=== PATIENT | female | born 1965 | race Caucasian/White ===

== ENCOUNTER 2017-01-04 09:25 | Day surgery (SDC) | payer OTHER ==
[2017-01-03 19:03] LABS: HEMATOCRIT 23.9 % (37.0-47.0); HEMOGLOBIN 7.6 g/dL (12.0-16.0); MANUAL DIFF NEEDED? YES; MCH 30.4 PG (27-31); MCHC 31.8 g/dL (33-37); MCV 95.6 FL (81-99); MPV 11.3 FL (7.4-10.4); PLT 54 X1000 (130-400)
[2017-01-03 20:32] LABS: BANDS 9 % (0-1); EOS 2 % (1-10); LYMPHS 37 % (21-51); MONO 4 % (1-9); NRBC 22 % (0-0)
[2017-01-04] MEDS ORDERED: NS 250 ML ONE (09:37)
[2017-01-04] MEDS ORDERED: TYLENOL ONE (09:50)
[2017-01-04] MEDS ORDERED: BENADRYL ONE (09:50)
[2017-01-04] MEDS ORDERED: HEPARIN ONE (13:37)
[2017-01-04 13:50] VITALS: BP 107/76
== END 2017-01-04 13:37 | disposition home or self-care (01) ==
LOC: OPS 09:25
PROVIDERS: ATTEND Internal Medicine Hematology & Oncology
DX: C50.911 Malignant neoplasm of unspecified site of right female breast (principal); D63.0 Anemia in neoplastic disease; Z17.0 Estrogen receptor positive status [ER+]; I89.0 Lymphedema, not elsewhere classified; C79.51 Secondary malignant neoplasm of bone; E87.6 Hypokalemia; D50.9 Iron deficiency anemia, unspecified; D69.6 Thrombocytopenia, unspecified; D70.9 Neutropenia, unspecified; R16.1 Splenomegaly, not elsewhere classified; Z15.01 Genetic susceptibility to malignant neoplasm of breast; Z79.899 Other long term (current) drug therapy
CPT/HCPCS: 36415; 36430; 85025; 86850; 86900; 86901; 86920; J7050; P9016

== ENCOUNTER 2017-02-16 11:33 | Inpatient (IN) ==
[2017-02-16] MEDS ORDERED: ZOFRAN IV ONE ×2 (11:58→17:02)
[2017-02-16] MEDS ORDERED: NS 1,000 ML IV ONE (11:58)
[2017-02-16 13:25] LABS: URINE CULTURE NEEDED? NO; URINE MICRO REVIEW NEEDED? NO; URINE SOURCE CLEAN CATCH
[2017-02-16 13:38] LABS: BASO% 2.9 % (0.0-0.8); EOS% 1.9 % (0.0-10.0); HEMATOCRIT 28.4 % (37.0-47.0); HEMOGLOBIN 8.6 g/dL (12.0-16.0); IMM GRAN# 0.26 X1000 (0.0-0.04); IMM GRAN% 2.4 % (0.0-0.5); LYMPH# 6.42 X1000 (1.2-3.4); LYMPH% 59.4 % (20.5-51.1); MANUAL DIFF NEEDED? NO; MCH 31.2 PG (27-31); MCHC 30.3 g/dL (33-37); MCV 102.9 FL (81-99); MONO# 1.27 X1000 (0.11-0.59); MONO% 11.7 % (1.7-9.3); MPV 11.8 FL (7.4-10.4); NEUT% 21.7 % (42.2-75.2); PLT 50 X1000 (130-400); RBC 2.76 XMIL (4.2-5.4)
[2017-02-16 13:46] LABS: BILIRUBIN URINE LARGE (NEGATIVE); BLOOD URINE NEGATIVE (NEGATIVE); COLOR ORANGE; GLUCOSE URINE NEGATIVE (NEGATIVE); LEUKOCYTES URINE NEGATIVE (NEGATIVE); NITRITE URINE NEGATIVE (NEGATIVE); PH URINE 5.5; PROTEIN URINE TRACE mg/dL (NEGATIVE); SP GRAVITY URINE 1.024; TURBIDITY URINE HAZY (CLEAR); UR EPITHELIAL CELLS <10 /HPF (<10); URINE BACTERIA NEGATIVE /HPF; URINE WBC <10 /HPF (<10); UROBILINOGEN URINE 6 mg/dL (NORMAL)
[2017-02-16 13:47] LABS: AGAP 18; ALBUMIN 2.5 g/dL (3.5-5.0); ALKALINE PHOSPHATASE 918 U/L (32-104); AMYLASE 13 U/L (20-200); BUN 15 mg/dL (8-22); CALCIUM 8.1 mg/dL (8.8-10.2); CHLORIDE 98 mmol/L (98-107); COSMO 273; GOT 409 U/L (10-30); GPT 219 U/L (10-36); LIPASE 25 U/L (13-60); POTASSIUM 4.3 mmol/L (3.5-5.1); SODIUM 135 mmol/L (136-145); TCO2 19 mmol/L (25-35); TOTAL BILIRUBIN 9.34 mg/dL (0.20-1.00); TOTAL PROTEIN 5.3 g/dL (6.3-8.3)
[2017-02-16 14:16] LABS: INR 1.29; PROTIME 13.8 Seconds (9.2-11.7)
[2017-02-16 14:31] LABS: PTT 48.7 Seconds (22.0-36.0)
--- NOTE | 2017-02-16 15:58 | Diag Imaging Result Document ---
PROCEDURE NAME: CT ABD/PELVIS W/ IV CONT ONLY - 02/16/2017 CT ABDOMEN AND PELVIS WITH INTRAVENOUS CONTRAST. TECHNIQUE: Dose reduction protocol. COMPARISON: Compared to 03/13/2014. FINDINGS: Interval development of a moderate amount of abdominal and pelvic ascites. Interval development of marked splenomegaly with the spleen measuring 17.5 cm. Multiple small hypodense nodular areas throughout the spleen. The liver is mildly nodular. The gallbladder is contracted. Normal pancreas and adrenal glands. Interval development of moderate proximal right-sided hydronephrosis, but no stones. Normal aorta. No bowel obstruction. Normal appendix. No abscess. The urinary bladder is mild to moderately distended. The uterus has been removed or is small. Interval development of diffuse sclerotic bony metastases. There is a right-sided breast implant. IMPRESSION: 1. Interval development of cirrhosis with nodular liver, splenomegaly, and ascites. 2. There is now diffuse sclerotic bony metastases. 3. Development of proximal right hydronephrosis, but no calcified stone. A preliminary report was given at 3:17 p.m.
[2017-02-16 17:05] LABS: HEMATOCRIT 25.1 % (37.0-47.0); HEMOGLOBIN 7.6 g/dL (12.0-16.0)
--- NOTE | 2017-02-16 17:50 | PROVIDER DOCUMENTATION ---
This chart was entered by Moon Becerra Scribe, acting as scribe for Dex Schroeder MD. HPI-Abdominal Pain/GI Problem - General Chief Complaint: Abdominal Pain Stated Complaint: vomiting,nausea,abd pain Time Seen by Provider: 02/16/17 11:50 Source: patient Allergies/Adverse Reactions: Patient Allergies Allergy/AdvReac Type Severity Reaction Status Date / Time codeine [Codeine] AdvReac Severe ITCHING Verified 02/16/17 15:22 Penicillins AdvReac Severe NAUSEA/VOMI Verified 02/16/17 15:22 TING hydrocodone [Hydrocodone] AdvReac Intermediate ITCHING Verified 02/16/17 15:22 Home Medications: Home Medication List Medication Instructions Recorded Confirmed Last Taken Type Venlafaxine [Effexor] 75 mg PO HS 09/10/12 02/16/17 02/15/17 21:00 History Tapentadol [Nucynta] 50 mg PO Q6H PRN PRN 05/22/16 02/16/17 02/02/17 21:00 History Letrozole [Femara] 2.5 mg PO DAILY 01/04/17 02/16/17 02/15/17 21:00 History Cetirizine HCl [Zyrtec] 10 mg PO DAILY 02/16/17 02/16/17 Unknown History Fexofenadine HCl [Desire Allergy] 60 mg PO DAILY 02/16/17 02/16/17 Unknown History Omeprazole 20 mg PO QHS 02/16/17 02/16/17 Unknown History Ondansetron HCl [Ondansetron HCl] 8 mg PO Q8H PRN PRN 02/16/17 02/16/17 Unknown History Temazepam [Temazepam] 15 mg PO PRN PRN 02/16/17 02/16/17 Unknown History - History of Present Illness-ABD Nature of Presenting Problems: Pt is 52 y/o F presents to the ED with abdominal pain. 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 Pt's daughter states Pt has gained 6 lbs in 2 weeks. Pt's daughter states Pt increased weakness, loss of appetite, and worsening jaundice. Pt's daughter states hx of cancer. Pt's daughter states recent treatment of chemo for breast cancer that has spread to the bones. Abdominal Pain Onset Location: reports: generalized abdomen Pain Radiation: reports: no radiation Quality of Pain: reports: aching, fullness, tightness Severity in ED: reports: moderate Onset/Duration: reports: other (2 weeks) Timing: reports: still present, getting worse Activities at Onset: reports: light activity Exposure to sick contacts?: No Modifying Factors: improves with: nothing Associated Symptoms: reports: loss of appetite, nausea, swelling/mass in abdomen (swelling), vomiting, weakness, trouble walking. denies: anxiety, arm pain, back/neck pain, chest pain, constipation, cough, diaphoresis, diarrhea, dizziness, EENT symptoms, fatigue, fever/chills, genitourinary problems, headaches, heartburn, joint pain, malaise, muscle aches, sinus congestion/ drainage, rash, seizure, shortness of breath, sensory/motor loss, pain with inspiration, syncope Last BM: unsure Dark Stools Present?: reports: none noticed Rectal Bleeding: reports: none Rectal Pain: reports: none # of Vomiting Episodes: 4 Emesis Description: reports: clear Bruising or Bleeding Gums?: No Similar Symptoms Previously?: Yes Recently seen or treated by another doctor?: Yes Review of Systems - Adult - REVIEW OF SYSTEMS - ADULT Constitutional: reports: no symptoms reported Eyes: reports: no symptoms reported Ears, Nose, Mouth & Throat: reports: no symptoms reported Cardiovascular: reports: irregular heart rate (tachy). denies: chest pain, heart murmur Respiratory: reports: no symptoms reported Gastrointestinal: reports: abdominal pain, diarrhea, nausea, poor appetite, vomiting Genitourinary: reports: no symptoms reported Musculoskeletal: reports: muscle weakness. denies: bone pain, joint pain, neck pain Integumentary: reports: no symptoms reported Neurological: reports: no symptoms reported Psychiatric: reports: no symptoms reported Endocrine: reports: change in skin pigment. denies: excessive sweating, goiter , polyuria Hematologic/Lymphatic: reports: no symptoms reported Allergic/Immunologic: reports: no symptoms reported All Other Systems: Reviewed and Negative Past History - Adult - PAST MEDICAL HISTORY-ADULT Review of Records: reports: Nursing Assessment Review, Medications Reviewed, Social history reviewed & non-contributory. Major Childhood Illnesses: reports: denies history Cardiovascular: reports: denies history Respiratory: reports: denies history Gastrointestinal: reports: GERD Obstetrical/Gynecological: reports: other (cancer) Genitourinary: reports: denies history Musculoskeletal: reports: cancer Neurological: reports: denies history Endocrine/Immune: reports: cancer Other Conditions: reports: denies history - PRIOR SURGERIES/PROCEDURES Surgical/Procedure History: reports: hysterectomy, , breast - IMMUNIZATION STATUS Childhood Immunizations: See Nurse Assessment Flu Vaccine: See Nurse Assessment - FAMILY HISTORY Family History: reviewed, not pertinent - SOCIAL HISTORY Smoking: denies Substance Use: denies Living Situation: family Physical Exam-General - PHYSICAL EXAM-ADULT Initial Vital Signs Reviewed: Yes - CONSTITUTIONAL General Appearance: alert, mild distress, slow to respond. negative: appears well (ill in appearance) - EYES Eyes: PERRL/EOMI, other (jaundice to sclera) - HEAD, EARS, NOSE, MOUTH & THROAT HENMT: normocephalic/atraumatic, moist mucous membranes, normal ENT inspection, TMs normal, pharynx normal - NECK Neck: non-tender, full range of motion, supple, normal inspection - RESPIRATORY Respiratory: chest non-tender, lungs clear, normal breath sounds, no pleuratic chest pain, no respiratory distress, no accessory muscle use - CARDIOVASCULAR Cardiovascular: normal peripheral pulses, no edema, no gallop, no JVD, no murmur , tachycardia - GASTROINTESTINAL (ABDOMEN) Abdominal Exam: normal bowel sounds, soft, no organomegaly, no pulsatile mass, distended, tenderness (generalized) - LYMPHATIC Lymphatic: no adenopathy - MUSCULOSKELETAL Back Exam: normal inspection, no CVA tenderness, no vertebral tenderness Extremity: normal range of motion, non-tender, normal gait, normal inspection, no pedal edema, no calf tenderness - SKIN Integumentary: normal turgor, warm/dry, jaundice - NEUROLOGIC Neurologic: grossly normal - PSYCHIATRIC Psych/Mental Status: normal mood/affect, oriented x 3 Progress - PLAN OF CARE/RESULTS Progress/Plan/Lab Results: Vital Signs - 8 hr 02/16/17 11:40 Temperature 97.4 F L Pulse Rate 151 H Respiratory Rate 18 Blood Pressure 111/87 O2 Sat by Pulse Oximetry 100 Result Diagrams: 02/16/17 16:48 02/16/17 12:25 - EKG 1 Time of EKG reading by physician:: 11:48 EKG Read and Signed by:: Dex Schroeder EKG Interpretation (*Must complete 3 of following elements*): Abnormal Rate: 136 Rhythm: sinus tachycardia Comments: lateral infarct, age undetermined - CT/MRI 1 CT Study: Abdomen, Pelvis Impression: Abnormal (development of cirrhosis since the prior exam; splenomegaly, nodular liver and moderate ascites. development of moderate right hydroephrosis, but no stones. development of diffuse bone mets.) - CONSULTS/PCP/HOSPITALIST Notification #1 *Consult/PCP/Hospitalist*: Dr. Gooden Time Discussed: 17:45 Reason/Comments: Dr. Schroeder consulted with Dr. Gooden about admit of PT Consult Disposition: Admit Departure - Departure Time of Disposition Decision: 17:44 DIAGNOSIS: Anemia Post-operative complication Qualifiers: Surgical complication system/body Area: [id number] Encounter type: initial encounter Postoperative shock type: other Disposition: HOME 01 Certified Medical Emergency: Emergent Condition: Stable Additional Freetext Instructions: ED Follow Up Instructions: You have been treated by a care provider in the Emergency Department. These instructions are being provided to you so you can have an understanding of how to care for yourself upon discharge. Upon discharge from the Emergency Department, you are responsible for making arrangements for follow-up care by a physician of your choice. Take all prescribed medications as directed. Return to the Emergency Department immediately for any new or worsening symptoms. You may call the Physician Referral phone number at [phone] to obtain a list of Physicians who are taking new patients. Referrals and Follow-Ups: None,PCP [Primary Care Provider] - - Critical Care Note This patient required my direct personal management.: No This chart was documented by the indicated scribe, (Moon Becerra Scribe) and accurately reflects the services I performed and decisions made by me, Dex Schroeder MD, as attested by the provider's signature.
--- NOTE | 2017-02-16 19:32 | HISTORY AND PHYSICAL ---
PRIMARY CARE PROVIDER: Dr. Ferris. CHIEF COMPLAINT: Nausea, vomiting with abdominal pain. HISTORY OF PRESENT ILLNESS: Ms. Alma Zaldivar is a 52-year-old, female with a history of right breast cancer that she was diagnosed with 5 years ago along with mets to the bones. She started chemo at that time. Then again in May 2016 she was diagnosed with a spread into the bone marrow after she had a bone marrow biopsy. She resumed chemo for that and finished December 27, 2016. Today she went in for liver biopsy, had gone home, tried to eat a sandwich and it caused her a great deal of nausea and she had also been having some abdominal pain with this. She states that she is vomiting but denies that there is any blood in the stool, emesis or in her urine. Upon workup it was revealed that she had elevated bilirubin, AST and ALT normal amylase and lipase and normal kidney function. An abdominal pelvic CT was performed which showed right hydronephrosis, cirrhosis, nodular liver, ascites, splenomegaly and diffuse sclerotic bony mets. Will admit her for significant nausea, vomiting, significantly elevated liver enzymes and consult Dr. Ferris and Dr. Dey. She also has a low hemoglobin and hematocrit and a low platelet count. She states that she has had 6-7 blood transfusions with her last 1 being November of 2016. Will continue with IV fluid hydration and admit to the medical floor. PAST MEDICAL HISTORY: 1. Right breast cancer with mets to the bones 5 years ago. Received chemo at that time. 2. 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 Received chemo for that which she finished on 12/27/2016. 3. Anemia secondary to bone marrow mets. SURGICAL HISTORY: Right mastectomy with reconstruction 5 years ago, 3 sections, a hysterectomy, bone marrow biopsy and port placement. SOCIAL HISTORY: Denies tobacco, alcohol or illicit drug use. She has 4 adult children ages 25- 35. FAMILY HISTORY: Brother had diabetes. Father had heart disease and also had prostate and bone cancer. REVIEW OF SYSTEMS: Fourteen point review of systems were complete and all are negative, except for those mentioned in above HPI. ALLERGIES: Codeine, penicillin and hydrocodone. HOME MEDICATIONS: Zyrtec 10 mg p.o. daily. Desire 60 mg p.o. daily. Femara 2.5 mg p.o. daily. Omeprazole 20 mg p.o. nightly. Zofran 8 mg p.o. every 8 hours as needed. Tapentadol 50 mg p.o. every 6 hours p.r.n. for pain. Temazepam 50 mg p.o. p.r.n. Effexor 75 mg p.o. nightly. LABORATORY DATA: White blood cells 10,000, hemoglobin 7.6, hematocrit 25.1, platelet count 59,000. INR 1.29. PTT is 48.7. Sodium 135, potassium 4.3, BUN 15, creatinine 0.8, glucose 143. Bilirubin 9.34. AST 409, ALT 219, alkaline phos 918. Albumin is 2.5. Amylase 13, lipase 25. Urinalysis trace protein, large bilirubin, 10-20 red blood cells. IMAGING: Abdominal pelvic CT, interval development of cirrhosis with nodular liver splenomegaly and ascites, diffuse sclerotic bony metastasis, proximal right hydronephrosis but no calcified stone. PHYSICAL EXAMINATION: VITAL SIGNS: Temperature is 97.5 degrees, heart rate 125, respiratory rate 16, blood pressure 107/95, saturation 96% on room air. 5 feet 3 inches tall, 165 pounds. BMI 29.2. GENERAL: Ms. Alma Zaldivar is a 52-year-old, ill-appearing, female. She is in no acute distress. She is able answer all questions appropriately. HEENT: Atraumatic, normocephalic. Pupils equal, round, reactive to light. Mild scleral icterus. Mucous membranes are dry. NECK: No JVD or carotid bruits noted. CARDIOVASCULAR: S1, S2. Regular rate and rhythm. Tachycardic rate and rhythm. No rubs, gallops, or murmurs. PULMONARY: Clear to auscultation. Bilateral breath sounds. No accessory muscle use or work of breathing noted. GI: Distended, soft. Hypoactive bowel sounds. Tender in all 4 quadrants. Positive wave. No bleeding from the site of biopsy. EXTREMITIES: No edema noted. +2 dorsalis and radial pulses. NEUROLOGIC: Alert and oriented x4. Moves all extremities equally. SKIN: Warm, dry, intact. Icterus. ASSESSMENT AND PLAN: 1. Intractable nausea, vomiting, with abdominal pain. We will do Zofran and Phenergan. The abdominal pelvic CT showed that she has cirrhosis with ascites and a nodular liver. She is now status post liver biopsy with a history of breast cancer with mets to the bone and bone marrow. Patient states that she is followed by Dr. Ferris. We will reconsult him. 2. Breast cancer with mets to the bone and bone marrow, currently ruling out mets to the liver. Will be followed by Dr. eFrris. 3. Hyperbilirubinemia, transaminitis after liver biopsy. We will consult Gastroenterology for further workup. Amylase and lipase are normal. 4. 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 She has received several blood transfusions, she said anywhere from 6-7 with her last being November of 2016. Could consider blood transfusion this admit. 5. Thrombocytopenia. Platelet count is 50,000. This is likely secondary to liver dysfunction. We will consult Dr. Dey. She states that she has of an appointment with him in 1 week. 6. Deep venous thrombosis prophylaxis will be SCDs. 7. Gastrointestinal prophylaxis, Protonix IV q.12 hours. Dictated by JONNY Velarde for Kwame Gooden MD cc: JONNY Velarde MD Sammy Becdach, MD
[2017-02-16 19:43] LABS: TOTAL IRON 179 ug/dL (49-151); UNBOUND IRON < 1 ug/dL (112-346)
[2017-02-16 19:57] LABS: FERRITIN 7127 ng/mL (13-150)
[2017-02-16] MEDS ORDERED: SODIUM CHLORIDE 0.9% 10 ML ONE (21:24)
[2017-02-16] MEDS: SODIUM CHLORIDE 0.9% INJ PRN (21:27)
[2017-02-16] MEDS: SODIUM CHLORIDE 0.9% INJ SCH (21:28)
[2017-02-16] MEDS: PROTONIX IV SCH (21:28)
[2017-02-16] MEDS: NS 1,000 ML IV SCH (21:28)
[2017-02-16] MEDS: ZOFRAN IV PRN (21:34)
[2017-02-16] MEDS: EFFEXOR PO SCH (21:35)
[2017-02-16] MEDS: RESTORIL PO PRN (21:35)
[2017-02-16] MEDS ORDERED: PATIENT'S OWN MED PO PRN (21:45)
[2017-02-16 23:43] LABS: URINE CULTURE NEEDED? NO; URINE MICRO REVIEW NEEDED? NO; URINE SOURCE CATH
[2017-02-16 23:51] LABS: BILIRUBIN URINE MODERATE (NEGATIVE); BLOOD URINE NEGATIVE (NEGATIVE); COLOR YELLOW; GLUCOSE URINE NEGATIVE (NEGATIVE); LEUKOCYTES URINE NEGATIVE (NEGATIVE); NITRITE URINE NEGATIVE (NEGATIVE); PH URINE 5.5; PROTEIN URINE 30 mg/dL (NEGATIVE); TURBIDITY URINE CLEAR (CLEAR); UROBILINOGEN URINE 4 mg/dL (NORMAL)
[2017-02-16 23:52] LABS: UR EPITHELIAL CELLS <10 /HPF (<10); URINE BACTERIA NEGATIVE /HPF; URINE RBC <10 /HPF (<10); URINE WBC <10 /HPF (<10)
[2017-02-16 23:55] LABS: SP GRAVITY URINE > 1.030
[2017-02-17] MEDS: SODIUM CHLORIDE 0.9% INJ PRN ×2 (01:46→23:11)
[2017-02-17] MEDS: PHENERGAN IV PRN ×2 (01:46→23:11)
[2017-02-17 06:44] LABS: BASO% 2.3 % (0.0-0.8); EOS# 0.08 X1000 (0.0-0.7); EOS% 1.4 % (0.0-10.0); HEMATOCRIT 23.2 % (37.0-47.0); IMM GRAN# 0.16 X1000 (0.0-0.04); IMM GRAN% 2.8 % (0.0-0.5); LYMPH# 2.73 X1000 (1.2-3.4); LYMPH% 47.6 % (20.5-51.1); MANUAL DIFF NEEDED? YES; MCH 30.8 PG (27-31); MCHC 30.2 g/dL (33-37); MCV 102.2 FL (81-99); MONO# 0.76 X1000 (0.11-0.59); MONO% 13.3 % (1.7-9.3); NEUT% 32.6 % (42.2-75.2); PLT 40 X1000 (130-400); RBC 2.27 XMIL (4.2-5.4)
[2017-02-17 06:49] LABS: INR 1.6; PROTIME 17.3 Seconds (9.2-11.7)
[2017-02-17] MEDS: NS 1,000 ML IV SCH ×3 (06:52→23:12)
[2017-02-17 07:14] LABS: BANDS 4 % (0-1); EOS 2 % (1-10); LYMPHS 48 % (21-51); MONO 16 % (1-9); NRBC 10 % (0-0); POLYCHROM OCCASIONAL
[2017-02-17 07:26] LABS: AGAP 16; ALBUMIN 2.1 g/dL (3.5-5.0); ALKALINE PHOSPHATASE 800 U/L (32-104); BUN 18 mg/dL (8-22); CALCIUM 7.2 mg/dL (8.8-10.2); CHLORIDE 100 mmol/L (98-107); COSMO 272; GOT 765 U/L (10-30); GPT 280 U/L (10-36); POTASSIUM 4.7 mmol/L (3.5-5.1); SODIUM 135 mmol/L (136-145); TCO2 19 mmol/L (25-35); TOTAL BILIRUBIN 8.34 mg/dL (0.20-1.00); TOTAL PROTEIN 5.2 g/dL (6.3-8.3)
[2017-02-17] MEDS: PROTONIX IV SCH ×2 (08:52→20:29)
[2017-02-17] MEDS: ZOFRAN IV PRN ×3 (08:52→19:31)
[2017-02-17] MEDS: FEMARA PO SCH (08:52)
[2017-02-17] MEDS: SODIUM CHLORIDE 0.9% INJ SCH ×2 (08:52→20:30)
--- NOTE | 2017-02-17 11:08 | PROGRESS NOTE ---
DATE: 02/17/2017 Today Ms. Zaldivar referred to be doing a little okay. No more nausea but she is extremely weak. OBJECTIVE: Vital signs: Blood pressure is 118/83, pulse of 118, respirations 90, temperature 98.3 degrees. General: Ms. Zaldivar is a 52-year-old female. She is in bed. She looks slightly wasted. Mucosa is slightly pale and 3+ icteric. Neck: Supple. Chest : Good air entry bilateral. No crepitations. No rhonchi. Cardiovascular: Regular rate and rhythm. Abdomen: Soft, distended. There is fluid shift and dullness and there is also tenderness over the left upper quadrant. No guarding. No rebound. Lower Extremities: No pedal edema. PRODUCTION EXPEDITER: Patient is alert, oriented x4. There is no focal neurological deficit. LABORATORY DATA: WBC is 5.73, hemoglobin is 7.0, platelet count of 40,000. There is 10% of nucleated RBC on the peripheral smear and the MCV is 102. Sodium is 135, potassium is 4.7, chloride is 100, bicarb is 19. Renal function is fine. Total bilirubin is 8.34, AST is 765, ALT is 280. Alkaline phosphatase is 800. TSH is 1.14. DIAGNOSTIC STUDIES: A CT scan of the abdomen and pelvis done yesterday shows interval development of cirrhosis with nodular liver, diffuse sclerotic bony metastases and development of proximal right hydronephrosis. ASSESSMENT: 1. Transaminitis likely due to liver metastasis from the disease. There is significant splenomegaly with hypodensity lesions in the spleen likely due to metastasis. 2. Cirrhosis, etiology is unclear. Patient had a biopsy of the liver yesterday. Will be pending on the official report. 3. Ascites. Not quite sure the reason. I think it is probably related to the cirrhosis with portal hypertension. We will however let the patient go to Radiology for diagnostic paracentesis sunday. 4. History of history of breast cancer with bone metastasis. Noted. 5. Proximal right hydronephrosis. We will start the patient on antibiotics and consult Urology. 6. Macrocytic anemia. Folate is low. Patient also has nucleated RBC 10%. This is all consistent with possible myelodysplastic features which could be just from the bone invasion of the cancer. We are going to transfuse her 2 PRBC today and consult Dr. Ferris. cc: Kwame Gooden MD MTDD
[2017-02-17 12:50] LABS: RETIC% 5.26 % (0.8-2.1); RETIC-HE 38.7 PG (28.2-36.6)
[2017-02-17] MEDS ORDERED: NS 500 ML ONE (13:39)
--- NOTE | 2017-02-17 16:24 | CONSULTATION ---
DATE OF CONSULTATION: 02/17/2017 CONSULTING PHYSICIAN: Kwame Gooden MD. REASON FOR CONSULTATION: Right hydronephrosis. HISTORY OF PRESENT ILLNESS: A 52-year-old female with metastatic breast cancer who presented with nausea and abdominal pain. She was admitted and in the process a CT of abdomen and pelvis was done which revealed right hydronephrosis of new onset. She denies severe right flank pain, gross hematuria, fevers or chills. She denies previous urologic surgeries. She currently reports being comfortable as long as she is on Zofran and has a Fleming catheter in her bladder draining straw- colored urine. PAST MEDICAL HISTORY: Metastatic breast cancer, chronic anemia, allergic rhinitis, nausea, GERD, anxiety and depression. PAST SURGICAL HISTORY: Mastectomy, , hysterectomy, chemotherapy port placement, bone marrow biopsy. ALLERGIES: Codeine, penicillin, hydrocodone. HOME MEDICATIONS: Zyrtec, Desire, Femara, omeprazole, Zofran, Temazepam and Effexor. SOCIAL HISTORY: She denies tobacco, alcohol or drug use. FAMILY HISTORY: Positive for coronary artery disease and diabetes. REVIEW OF SYSTEMS: Reviewed and 12 systems negative with the exception of the HPI. PHYSICAL EXAMINATION: Vital Signs: T 98.3 degrees, P 121, BP 119/84. General : No acute distress. Pleasant female. HEENT: Normocephalic, atraumatic. Cardiovascular : Tachycardic, regular rhythm. Pulmonary: Bilateral breath sounds. Abdomen: Nontender, nondistended, but is protuberant likely due to cirrhosis and ascites. Genitourinary: Bladder is nontender to palpation, Fleming catheter in place draining straw-colored urine. Lymphatic: No groin lymphadenopathy. Dermatologic: No obvious skin lesions. Neurologic: Alert and oriented x3. Psychiatric: Appropriate mood and affect. PERTINENT LABS: White cell count of 5000, hematocrit of 23, platelets of 40,000 , creatinine of 0.7. PERTINENT IMAGES: CT of abdomen and pelvis on 02/16/2017 with IV contrast revealing cirrhosis, splenomegaly, ascites, diffuse bony metastases and right hydronephrosis. ASSESSMENT AND PLAN: A 52-year-old female with metastatic breast cancer who now developed right ureteral obstruction likely secondary to metastasis. I have discussed with the patient, her sister and her daughter who were present at bedside the evaluation with cystoscopy, retrograde pyelogram, and placement of right ureteral stent. We discussed that I would allow her to preserve her renal function and help her be able to get chemotherapy if she is a candidate for it. We discussed the risks including, but not limited to, bleeding, infection, injury to the bladder, and adjacent structures, and need for additional interventions. We also discussed the ureteral stent is not permanent and will require replacement or removal. PLAN: 1. Keeps Fleming catheter to gravity draining for now. 2. No emergent urologic intervention needed. 3. We will plan on adding the patient on 02/19/2017 for cystoscopy, bilateral retrograde pyelograms, right ureteral stent placement. Thank you for the consultation. cc: Shashank Michaels MD MTDD
[2017-02-17] MEDS: DEMEROL IV PRN (20:29)
[2017-02-17] MEDS: FOLIC ACID PO SCH (20:30)
[2017-02-17] MEDS: EFFEXOR PO SCH (20:30)
[2017-02-18] MEDS: DEMEROL IV PRN ×4 (00:55→21:26)
[2017-02-18 06:29] LABS: BASO% 2.2 % (0.0-0.8); EOS# 0.14 X1000 (0.0-0.7); EOS% 2.2 % (0.0-10.0); HEMATOCRIT 29.1 % (37.0-47.0); HEMOGLOBIN 9.2 g/dL (12.0-16.0); IMM GRAN# 0.26 X1000 (0.0-0.04); IMM GRAN% 4.1 % (0.0-0.5); LYMPH% 47.4 % (20.5-51.1); MANUAL DIFF NEEDED? YES; MCH 29.4 PG (27-31); MCHC 31.6 g/dL (33-37); MONO# 0.66 X1000 (0.11-0.59); MONO% 10.4 % (1.7-9.3); MPV 9.9 FL (7.4-10.4); NEUT% 33.7 % (42.2-75.2); RBC 3.13 XMIL (4.2-5.4)
[2017-02-18 06:30] LABS: PLT 37 X1000 (130-400)
[2017-02-18 06:34] LABS: LYMPHS 52 % (21-51); MONO 8 % (1-9); NRBC 2 % (0-0); POLYCHROM 1+
[2017-02-18 06:43] LABS: AGAP 12; BUN 18 mg/dL (8-22); CHLORIDE 104 mmol/L (98-107); COSMO 275; POTASSIUM 4.1 mmol/L (3.5-5.1); SODIUM 137 mmol/L (136-145); TCO2 21 mmol/L (25-35)
--- NOTE | 2017-02-18 08:52 | PROGRESS NOTE ---
DATE: 02/18/2017 SUBJECTIVE: Ms. Zaldivar reports decent night overnight. She has had generalized back pain but denies specific right flank pain. OBJECTIVE: Vital Signs: T 98.2 degrees, P 103, BP 144/98. General: No acute distress. Abdomen: Nontender, nondistended. Back: No CVA tenderness. : Fleming catheter in place, draining straw-colored urine. PERTINENT LABORATORY DATA: White cell count of 6000, platelet count is 37,000. Creatinine is 0.6. ASSESSMENT: A 52-year-old female with metastatic breast cancer who has a new onset of right hydroureteronephrosis. I have discussed with the patient that we will plan on taking her to the operating room tomorrow for cystoscopy, bilateral retrograde pyelograms, placement of right ureteral stent. We discussed that I would not plan on doing biopsies or invasive interventions given her platelet count but we will defer platelet transfusion to the hospice colleagues and/or anesthesia as they deem safe. The risks of the procedure including but not limited to, bleeding, infection, injury to the bladder, injury to adjacent structures, need for additional interventions were explained. She voiced understanding and wished to proceed. PLAN: 1. NPO after midnight. 2. To OR tomorrow for cystoscopy, bilateral retrograde pyelograms, placement of right ureteral stent. cc: Shashank Michaels MD
[2017-02-18 09:11] LABS: ALBUMIN 2.3 g/dL (3.5-5.0); DIRECT BILIRUBIN 7.8 mg/dL (0.00-0.20); TOTAL PROTEIN 5.2 g/dL (6.3-8.3)
[2017-02-18] MEDS: FEMARA PO SCH (09:12)
[2017-02-18] MEDS: PROTONIX IV SCH ×2 (09:12→20:18)
[2017-02-18] MEDS: FOLIC ACID PO SCH ×2 (09:12→20:18)
[2017-02-18] MEDS: SODIUM CHLORIDE 0.9% INJ SCH ×2 (09:12→20:18)
[2017-02-18] MEDS: NS 1,000 ML IV SCH ×3 (09:14→20:17)
--- NOTE | 2017-02-18 13:53 | PROGRESS NOTE ---
DATE: 02/18/2017 SUBJECTIVE: Today Ms. Zaldivar referred to be doing a little better. Denies any acute problem. No nausea, no vomiting. OBJECTIVE: Vitals: Blood pressure is 144/98, pulse of 103, respirations 20, temperature 98.2 degrees. General: Ms. Zaldivar 52-year-old female. She was in bed. Not seemingly distressed. HEENT: Mucosa is pink, 3+ icteric. Neck: Supple. Chest: Good air entry bilateral. No crepitations. No rhonchi. Cardiovascular: Regular rate and rhythm. No murmurs, no rubs. No gallops. Abdomen: Soft, distended. There is shifting dullness. No guarding, no rebound. Lower extremity: No pedal edema. PRINTING GREY CLOTH TENDER: Patient is alert and oriented x4. No focal neurological deficit. LABORATORY DATA: WBC is 6.33, hemoglobin is 9.2, platelet count is 37,000. There is no bands, there are a lot of lymphocytes. Chemistries reviewed, completely unremarkable except for calcium of 7.0. Patient also has albumin of 2.3. ASSESSMENT: 1. Obstructive jaundice. Not quite sure of the cause. We are going to do an ultrasound of the of the abdomen looking more specifically at the CBD to make sure there is no any obstruction. The liver itself looks cirrhotic which has been biopsied. They are not sure if it is due to liver metastases or there is an obstruction to the biliary system. GI has already been consulted. 2. Cirrhosis. Etiology is unclear. Patient has had biopsy of the liver. We are still pending official report. 3. Ascites. Etiology is not apparently clear I think is probably due to cirrhosis. Will be pending radiology for diagnostic thoracentesis on Sunday. 4. History of breast cancer with bone metastasis noted. 5. Proximal right hydronephrosis. Patient is on antibiotics and Urology has been consulted. There is a plan to do urological intervention tomorrow. 6. Macrocytic anemia with low folate level. Will continue replacing the folic acid. Hematology/Oncology is on board. cc: MD SARIKA Santillan
[2017-02-18] MEDS: ZOFRAN IV PRN (14:04)
--- NOTE | 2017-02-18 16:07 | Diag Imaging Result Document ---
PROCEDURE NAME: US ABDOMEN-COMPLETE - 02/18/2017 ABDOMINAL ULTRASOUND: FINDINGS: The pancreas is predominantly obscured as is the inferior vena cava and the majority of the aorta. There is a small amount of fluid about the liver. There is moderate dilatation to the right renal pelvis. No renal mass. No focal hepatic abnormality. The gallbladder is contracted. The wall is thickened although this could be due to it being contracted and secondary to the ascites. The common bile duct measures 3 mm. The spleen is enlarged measuring at least 18 cm. No distinct splenic lesion. Normal left kidney. No hydronephrosis. IMPRESSION: 1. There is ascites about the liver. 2. Splenomegaly. 3. Moderate right-sided hydronephrosis similar to the CT from 02/16/2017.
--- NOTE | 2017-02-18 16:32 | PROGRESS NOTE ---
DATE: 02/18/2017 CHIEF COMPLAINT: Can only drink liquids. SUBJECTIVE: Ms. Zaldivar had an uneventful night. Continues to have abdominal pain. OBJECTIVE: Vital signs: Temperature 97.8 degrees, pulse 93, respiratory rate 20, blood pressure 131/88, O2 saturation 100% on room air. General: This is a jaundiced chronically ill-appearing woman in no acute distress. Eyes: Sclerae are icteric. Cardiovascular: Regular rate and rhythm. Normal S1, S2. No murmurs, rubs, or gallops. Pulmonary: Lungs clear to auscultation anteriorly bilaterally without wheezes, rales, or rhonchi. GI: Abdomen is distended, diffusely tender with no rebound, but voluntary guarding. Extremities: No clubbing or cyanosis. Trace bilateral pretibial edema. Neurologic: Alert and oriented x3. No focal deficits. LABORATORY DATA: White count 6.3, hemoglobin 9.2, platelet count 37,000, with 40 segs, 52 lymphocytes, 8 monos. Sodium 137, potassium 4.1, BUN 18, creatinine 0.6, glucose 89, total bilirubin 10. ASSESSMENT AND PLAN: 1. Obstructive jaundice: Liver biopsy from last week will hopefully be available tomorrow or the next day for further evaluation. Abdominal ultrasound performed other than weekend is pending at this time. Avoid hepatotoxic agents and use appropriate dosing for medications when they are hepatically cleared at this time. 2. Ascites: Paracentesis scheduled for the morning for therapeutic and diagnostic purposes. 3. Breast cancer: She is on Femara and Avastin for metastatic breast cancer. Treatment change based on workup ongoing. 4. Right hydronephrosis: She will have a stent placed tomorrow by Dr. Michaels. 5. Anemia: Folic acid is being repleted. She has some evidence of hemolysis, but no microangiopathic hemolytic anemia at this time. Haptoglobin pending. She is status post transfusion yesterday with a stable hemoglobin at 9.2 today. Monitor. 6. Thrombocytopenia: Her platelet count runs 30s to 60s in the office. Platelet count is 37,000 today. DIC profile shows adequate fibrinogen and no evidence of clear DIC at this time. Continue to monitor. cc: Savanna Dill MD
[2017-02-18] MEDS: EFFEXOR PO SCH (20:18)
[2017-02-19] MEDS: NS 1,000 ML IV SCH (00:09)
[2017-02-19] MEDS: SODIUM CHLORIDE 0.9% INJ PRN (00:23)
[2017-02-19] MEDS: PHENERGAN IV PRN (00:23)
[2017-02-19] MEDS: DEMEROL IV PRN ×5 (03:37→22:29)
[2017-02-19 06:18] LABS: BASO% 2.9 % (0.0-0.8); EOS# 0.14 X1000 (0.0-0.7); HEMATOCRIT 30.5 % (37.0-47.0); HEMOGLOBIN 9.7 g/dL (12.0-16.0); IMM GRAN# 0.29 X1000 (0.0-0.04); IMM GRAN% 4.1 % (0.0-0.5); LYMPH# 3.27 X1000 (1.2-3.4); LYMPH% 46.8 % (20.5-51.1); MANUAL DIFF NEEDED? YES; MCH 29.8 PG (27-31); MCHC 31.8 g/dL (33-37); MCV 93.6 FL (81-99); MONO# 0.87 X1000 (0.11-0.59); MONO% 12.4 % (1.7-9.3); MPV 11.2 FL (7.4-10.4); NEUT% 31.8 % (42.2-75.2); RBC 3.26 XMIL (4.2-5.4)
[2017-02-19 06:26] LABS: PLT 39 X1000 (130-400)
[2017-02-19 06:33] LABS: AGAP 12; ALBUMIN 2.3 g/dL (3.5-5.0); ALKALINE PHOSPHATASE 728 U/L (32-104); BUN 17 mg/dL (8-22); CALCIUM 7.2 mg/dL (8.8-10.2); CHLORIDE 103 mmol/L (98-107); COSMO 273; GOT 664 U/L (10-30); GPT 328 U/L (10-36); MAGNESIUM 2.2 mg/dL (1.5-2.7); SODIUM 136 mmol/L (136-145); TCO2 21 mmol/L (25-35); TOTAL BILIRUBIN 11.93 mg/dL (0.20-1.00); TOTAL PROTEIN 5.1 g/dL (6.3-8.3)
[2017-02-19 06:34] LABS: BANDS 10 % (0-1); LYMPHS 46 % (21-51); MONO 6 % (1-9); NRBC 5 % (0-0); POLYCHROM OCCASIONAL
[2017-02-19 08:05] LABS: INR 1.68; PROTIME 18.2 Seconds (9.2-11.7)
--- NOTE | 2017-02-19 08:40 | EKG Report ---
Test Performed on : 02/17/2017 06:37:20 AM Test Reason : chest pain Blood Pressure : / mmHG Vent. Rate : 120 BPM Atrial Rate : 120 BPM P-R Int : 140 ms QRS Dur : 062 ms QT Int : 318 ms P-R-T Axes : 034 016 067 degrees QTc Int : 449 ms Sinus tachycardia. Otherwise normal ECG When compared with ECG of 16-FEB-2017 11:48, (Unconfirmed) Arm leads are no longer reversed Confirmed by Basia CRANE, Chon Hilario ([id number]) on 02/20/2017 12:39:08 PM
--- NOTE | 2017-02-19 12:53 | PROGRESS NOTE ---
DATE: 02/19/2017 PRIMARY MACHINE SHOP SUPERVISOR: Dr. Dey. SUBJECTIVE: The patient is currently resting in bed. Her daughter is at the bedside. She complains of abdominal distention and she is scheduled for ultrasound-guided paracentesis today per the primary team. Her liver biopsy was done last week; result currently pending. The patient was referred as an outpatient to Dr. Dey and was supposed to see her this week, per Dr. Ferris. So Dr. Dey will be coming back today to see the patient. The patient denies any fevers, rigors, chills, nausea, vomiting, vomiting blood, or passing blood in the stools. OBJECTIVE: Vital signs: Temperature of 98.3 degrees, pulse rate of 97, respiratory rate 18, blood pressure 142/102, saturating 98% on room air. General Appearance: Thinly built, lying in bed, in no acute distress. HEENT: Pale conjunctivae. Icteric sclerae. Neck: Supple. Abdomen: Distended. Positive ascites. Mild discomfort with no rebound or guarding. Extremities: No cyanosis, clubbing. Mild lower extremity edema noted. Neurologic: She is alert, awake, oriented. LAB: Hemoglobin and hematocrit are 9.7 and 30.5, white count 6.9, platelet count of 39,000. MCV of 93.6. Admission MCV of 102.2. INR 1.6. PT of 18.2. Sodium 138, potassium 4, chloride 103 bicarb 20, anion of 12, BUN of 17, creatinine 0.5, glucose of 89, calcium 7.2, phosphorus 1.4, magnesium 2.2. Total bilirubin is 11.93, AST 664, ALT 328, alkaline phosphatase 748, total bilirubin 7.8, total protein 5.1, albumin of 2.3. Urinalysis showing positive protein, positive bilirubin. Her ultrasound of the abdomen was done on 02/18/2017 which showed ascites around the liver, splenomegaly, and moderate right-sided hydronephrosis. CT scan on 02/16/2017, no focal hepatic abnormality noted. Common bile duct measuring 3 mm. Spleen is 18 cm. Abdominal and pelvic CT scan done on 02/08/2017 showed interval development of cirrhosis with nodular liver, splenomegaly, ascites. Diffuse sclerotic bony metastasis. Proximal right hydronephrosis but no calcified stone. Liver biopsy results are pending. IMPRESSION AND PLAN: 1. Metastatic breast cancer. Currently undergoing chemotherapy by Dr. Ferris. Patient is currently getting Taxol regimen and Avastin regimen along with Femara. 2. New diagnosis of liver cirrhosis with splenomegaly, ascites, coagulopathy, thrombocytopenia, and worsening jaundice. She is in impending liver failure. We will follow up the liver biopsy results. The patient would prefer to see Dr. Dey as her records were forward to him as an outpatient by Dr. Ferris so we will also consult Dr. Dey today to provide recommendations regarding further management. We will avoid any hepatotoxic drugs. 3. Ascites. Patient is ultrasound-guided paracentesis today. We will need to look at the fluid studies including cytology. 4. The patient will need low-sodium diet less than 2 g in 24 hours and free fluid restriction 1.5 L in 24 hours. 5. Malnutrition. Will start her on Ensure 1 can p.o. t.i.d. 6. Will continue patient on GI prophylaxis with Protonix. 7. Will also add ammonia level for tomorrow morning's labs. 8. Will check chronic liver disease workup in the form of SAÚL, antismooth muscle antibody, AMA, alpha 1 antitrypsin level, ceruloplasmin level. We also need to exclude the possibility of metastatic breast cancer in the liver which could be a possibility. The above plan was discussed with the patient and family and all questions were answered. Further recommendations and follow pending the hospital course and per Dr. Dey. cc: MD Siva Houston MD Sammy Becdach, MD Sergey S. Ananyev, MD
--- NOTE | 2017-02-19 13:22 | CONSULTATION ---
DATE OF CONSULTATION: 02/19/2017 TODAY'S DATE: 02/19/2017. REASONS FOR REFERRAL: 1. Nausea. 2. Vomiting. 3. Abdominal pain. 4. Elevated LFTs. HISTORY OF PRESENT ILLNESS: This is a 52-year-old, white female, who has a history of right breast cancer diagnosed 5 years ago with metastasis to the bones. She had underwent chemo and also in May of 2016, was diagnosed with metastasis to the bone marrow. She resumed chemo and recently finished chemo therapy in December. She developed elevated liver function test over the last month or so and it was thought that it may be due to the chemotherapy. But once the chemo therapy was completed, she continued to have elevation in her liver function tests. She had also developed abdominal swelling, ascites, and jaundice over the last 2 weeks. She had a liver biopsy last Sunday. After the biopsy, she developed problems with nausea and vomiting, and as was unable to keep anything down. She was admitted to the hospital for further evaluation. An abdominal CT showed right hydronephrosis, cirrhosis, nodular liver, ascites, splenomegaly, and diffuse sclerotic bony metastasis. She has been seen by Dr. Michaels. There is plans for a urinary stent to be placed tomorrow. There is also plans for a paracentesis, therapeutic/diagnostic today. Still awaiting liver biopsy results from last Sunday. Patient's main complaint is nausea. She also reports some abdominal pain. PAST MEDICAL HISTORY: 1. Right breast cancer with metastasis to the bones and bone marrow metastasis in 2015. She recently finished chemotherapy in December. 2. Anemia. SURGICAL HISTORY: 1. Right mastectomy with reconstruction. 2. sections x3. 3. Hysterectomy. 4. Bone marrow biopsy. 5. Port placement. ALLERGIES: 1. Codeine, causing itching. 2. Penicillin, causing nausea and vomiting. 3. Hydrocodone, causing itching. MEDICATIONS: 1. Effexor 75 mg every night. 2. Temazepam 15 mg as needed. 3. Nucynta 50 mg every 6 hours as needed. 4. Ondansetron 8 mg every 8 hours as needed. 5. Omeprazole 20 mg every night. 6. Femora 2.5 daily. 7. Desire 60 mg daily. 8. Zyrtec 10 mg daily. SOCIAL HISTORY: 1. Denies tobacco, alcohol use. 2. She has 4 children. FAMILY HISTORY: 1. Brother had diabetes. 2. Father had heart disease and prostate and bone cancer. REVIEW OF SYSTEMS: Per History of Present Illness. PHYSICAL EXAMINATION: Vital Signs: Temperature 98.3 degrees, pulse 97, respirations 18, blood pressure 143/102. Generally: Patient is awake, alert. Psych: No acute distress. HEENT: Scleral jaundice noted. Cardiovascular: Regular rate and rhythm. Respiratory : Clear bilaterally. Abdomen: Distended, some tenderness. Umbilical hernia noted. Extremities: Some mild lower extremity edema noted. Skin: Jaundice. LABORATORY: Hematology: White count 6.99 hemoglobin 9.7, hematocrit 30.5, MCV 93.6, platelets 39,000. Coagulation: Protime 18.2, INR 1.68. Chemistry: Sodium 136, potassium 4.0, chloride 103, CO2 21, BUN 17, creatinine 0.5, glucose 89. Ferritin high 7127, total bilirubin 11.93, AST 664, ALT 328, alkaline phosphatase 728, lactate dehydrogenase 1955, amylase 13, lipase 25. Vitamin B12, 1379, folate 8.5, TSH 1.14, vitamin D 22.8. ASSESSMENT: 1. Breast cancer with metastasis to bone and bone marrow. 2. New onset of jaundice and ascites. 3. Elevated liver function tests. 4. Thrombocytopenia. PLAN: 1. Continue supportive care. 2. She has been seen by Dr. Michaels for right hydronephrosis and has a stent placement planned for tomorrow. 3. She had a recent liver biopsy. Waiting on biopsy results. 4. She has plans to have a paracentesis today. We will wait on those results. 5. I have discussed this case with Dr. Dey. Further plans to be made by him. Thank you for this consult. Dictated by JONNY Calderon for Siva Dey MD cc: JONNY Steen MD [facility]
[2017-02-19] MEDS ORDERED: VITAMIN K PO ONE (13:41)
--- NOTE | 2017-02-19 14:21 | CONSULTATION ---
DATE OF CONSULTATION: 02/17/2017 REASON FOR CONSULTATION: Worsening ascites, new onset cirrhosis, abdominal pain and severe anemia. HISTORY OF PRESENT ILLNESS: This is a 52-year-old lady with a complicated past history with right breast cancer 5 years ago with metastatic to the bones. She just finished her chemo on December 27. At that time she was found to beginning to have liver abnormalities. She actually had undergone liver biopsy last week and came in with abdominal distention and very low blood count and she had a CT which showed cirrhotic appearing liver as well as ascites. There does not appear to be significant blood by the CT numbers. Will discuss further with the radiologist. PAST MEDICAL HISTORY: 1. Right breast cancer with mets. 2. Bone marrow mets currently on chemo. 3. Anemia secondary to bone marrow mets as well as may be secondary to some bleeding from the liver biopsy. SURGICAL: Right mastectomy with reconstruction 5 years ago, hysterectomy, bone marrow biopsy and port placement. SOCIAL: Denies tobacco, alcohol or illicit drugs. FAMILY HISTORY: Brother has diabetes. Father has heart disease and prostate cancer. REVIEW OF SYSTEMS: Fourteen point review is negative other than HPI. ALLERGIES: Allergic to codeine and penicillin and hydrocodone. HOME MEDICATIONS: Zyrtec 10, Desire 60, Femara 2.5 mg daily, omeprazole 20 daily, Zofran as needed, temazepam 50 mg p.r.n., Effexor 75 nightly. LABORATORY DATA: White count 10,000, hemoglobin 7.6, hematocrit 25, platelets 59,000, INR 1.29. Chem 7 is normal other than glucose at 143, bilirubin 9.34, AST 409, ALT 219, alkaline phosphatase 918, albumin 2.5, amylase and lipases are normal. shows large amount of bilirubin. Remaining CT of the abdomen as above. PHYSICAL EXAMINATION: General: Reveals this is emaciated young lady but in no acute distress. Vital signs: Temperature 98 degrees, heart rate about 20 respirations 16, blood pressure 107/95, O2 saturation 96%. General: Lady in no acute distress. HEENT: There is marked scleral icterus present. Marked conjunctival pallor present. Neck: Supple. Trachea midline. Heart: Normal first and second heart sounds. Lungs: Decreased breath sounds at bases. Abdomen: Distended, no significant tenderness. Bowel sounds are present and distant. Extremities: Edema 2+ present. Neurological: Alert and oriented. There are no signs of hepatic encephalopathy. IMPRESSION: 1. Intractable nausea, vomiting, abdominal pain status post chemotherapy. 2. New onset of worsening liver disease could be metastasis or could be toxicity from chemotherapy however I am not familiar with what she is on. Will await further discussions with Dr. Ferris and Dr. Dey. 3. Chronic anemia which has worsened recently, also there was a question of any bleeding in the abdomen after liver biopsy although it does not appear at this time. 4. Thrombocytopenia. 5. Deep vein thrombosis prophylaxis. Patient has a complicated course appears to be worsening lately and rapid deterioration. Dr. Dey will come Sunday and take over the care and Dr. Ferris will follow. cc: Nidhi Dhillon MD
[2017-02-19] MEDS: PROTONIX IV SCH ×2 (14:25→22:28)
[2017-02-19] MEDS: SODIUM CHLORIDE 0.9% INJ SCH ×2 (14:25→22:28)
--- NOTE | 2017-02-19 14:52 | EKG Report ---
Test Performed on : 02/16/2017 11:48:17 AM Test Reason : ED. Not ordered in [place] Blood Pressure : / mmHG Vent. Rate : 136 BPM Atrial Rate : 136 BPM P-R Int : 138 ms QRS Dur : 060 ms QT Int : 362 ms P-R-T Axes : 000 183 121 degrees QTc Int : 544 ms Suspect arm lead reversal, interpretation assumes no reversal Sinus tachycardia. Lateral infarct , age undetermined Abnormal ECG When compared with ECG of 22-MAY-2016 09:18, Vent. rate has increased BY 45 BPM Questionable change in QRS axis T wave inversion now evident in Lateral leads Unconfirmed Result
--- NOTE | 2017-02-19 15:25 | PROGRESS NOTE ---
DATE: 02/19/2017 SUBJECTIVE: Today Ms. Zaldivar continues to be stable, denies any complaints. OBJECTIVE: Vital signs: Blood pressure is 143/102, pulse of 97, respirations 18, temperature 98.3 degrees. General: Ms. Zaldivar is a 52-year-old, female. She was in bed. Not seemingly distressed. HEENT: Mucous is pink and moist. 3+ icteric. Chest: Good air entry bilaterally. A few bibasilar posterior crepitations. Cardiovascular: Regular rate and rhythm. Abdomen: Soft, distended. There is some shifting dullness. No guarding. Central Nervous System: Patient is alert and oriented x4. No focal neurological deficit. LABORATORY DATA: WBC is 6.99, hemoglobin is 9.7, platelet count is 39,000. There are 10% bands on the peripheral smear. Chemistries reviewed and are completely normal except for calcium of 7.2, phosphorus of 1.4, vitamin D of 22.8 which is insufficient. Total bilirubin is 11.93, AST is 664, ALT 328, alkaline phosphatase 728. INR is 1.68. ASSESSMENT: 1. Transaminitis with obstructive pattern of jaundice. The ultrasound of the CBD was unremarkable. I think this is probably due to metastatic disease to the liver and biliary tree. We are waiting on GI to see if they want to do any form of intervention. 2. Cirrhosis. Etiology is unclear. Patient is pending liver biopsy. 3. Ascites likely due to underlying cirrhosis. Patient is pending diagnostic paracentesis, however, her INR is a little high so we will give her a dose of vitamin K and one infusion of FFP. Repeat the INR and get it below 1.5 before IR will do this. 4. Right proximal hydronephrosis. Patient is currently on antibiotics and is pending Urology intervention. 5. Thrombocytopenia. Platelet count is at 39,000, slightly improved from yesterday. I think this is probably due to bone marrow disease. 6. Breast cancer with metastasis to bone and also likely metastasis to liver and spleen. cc: Kwame Gooden MD
[2017-02-19] MEDS ORDERED: CLAVE SECONDARY SET 11953 ONE (16:55)
[2017-02-19] MEDS ORDERED: KEFZOL 1 GM/D5W 1 GM/50 ML IVPB ONE (16:55)
[2017-02-19] MEDS ORDERED: NS IV ONE (16:56)
[2017-02-19] MEDS ORDERED: VITAMIN K IV ONE (16:56)
[2017-02-19] MEDS ORDERED: DIPRIVAN 1% ONE (17:36)
[2017-02-19] MEDS: FOLIC ACID PO SCH ×2 (18:43→22:29)
[2017-02-19] MEDS: ZOFRAN IV PRN (20:10)
--- NOTE | 2017-02-19 21:47 | OPERATIVE NOTE ---
PROCEDURE DATE: 02/19/2017 SURGEON: Shashank Michaels MD. PREOPERATIVE DIAGNOSIS: Metastatic breast cancer, right hydroureteronephrosis. PERTINENT PROCEDURES: Cystoscopy, bilateral retrograde pyelograms, placement of 6-[place], 22 cm right ureteral stent. INDICATIONS: A 52-year-old female with metastatic breast cancer, who developed right-sided ureteral obstruction. She presents for her workup and placement of the ureteral stent. FINDINGS: Cystoscopy revealing hyperemic mucosa throughout the bladder, with the posterior bladder wall irritation, consistent with Fleming catheter. Left retrograde pyelogram was unremarkable. Right retrograde pyelogram revealing what appeared to be a pinpoint narrowing at the level of [id number]-[id number] ureter, with subsequent hydroureteronephrosis. There was no evidence of filling defects. PROCEDURE IN DETAIL: After obtaining informed consent, the patient was brought to the operating room. Perioperative antibiotics and laryngeal mask airway anesthesia were administered. She was placed in lithotomy position. Fleming catheter was removed. She was prepped and draped in sterile fashion. A 21-[place] rigid cystoscope was used to gain access to the bladder, which was then examined in a systematic fashion. Her bladder had hyperemic mucosa, but no distinct papillary lesions. There was irritation of the posterior bladder wall, consistent with indwelling Fleming catheter. We turned our attention to the left ureteral orifice, which was cannulated with a cone- tipped ureteral catheter. Fifty percent diluted Omnipaque dye was used to perform the retrograde pyelogram, which revealed a delicate caliceal system, delicate ureter. No evidence of hydroureteronephrosis or filling defects. We then performed the same thing on the right side. It revealed dilated right proximal ureter to the level of the mid ureter, with tapering consistent with extrinsic obstruction. Proximally, there was a hydronephrosis, with blunting of the calices. We then placed a PTFE wire to the level of the right renal pelvis, and over it advanced a 6- [place], 22 cm ureteral stent in the standard fashion. Proximal coil position was confirmed fluoroscopically. The distal coil was directly visualize. This string was detached from the stent. The cystoscope was removed. A 16-[place] Fleming catheter was replaced, with return of straw- colored urine. She was extubated, taken to the PACU for further recovery. ESTIMATED BLOOD LOSS: None. COMPLICATIONS: None. DISPOSITION: To PACU, and subsequently floor, with Fleming catheter to gravity drainage and ureteral stent in place. cc: Shashank Michaels MD
[2017-02-19] MEDS: LACTULOSE PO SCH (22:28)
[2017-02-19] MEDS: FEMARA PO SCH (22:28)
[2017-02-19] MEDS: EFFEXOR PO SCH (22:29)
[2017-02-19] MEDS: RESTORIL PO PRN (22:29)
[2017-02-20] MEDS: DEMEROL IV PRN ×2 (04:28→21:52)
[2017-02-20] MEDS: ZOFRAN IV PRN ×3 (04:28→17:56)
[2017-02-20] MEDS: NS 1,000 ML IV SCH ×2 (04:30→16:58)
[2017-02-20 07:17] LABS: INR 1.26; PROTIME 13.4 Seconds (9.2-11.7)
[2017-02-20 07:24] LABS: BASO% 3.4 % (0.0-0.8); EOS# 0.14 X1000 (0.0-0.7); HEMATOCRIT 27.7 % (37.0-47.0); HEMOGLOBIN 8.7 g/dL (12.0-16.0); IMM GRAN# 0.23 X1000 (0.0-0.04); IMM GRAN% 3.2 % (0.0-0.5); LYMPH# 3.26 X1000 (1.2-3.4); MANUAL DIFF NEEDED? YES; MCH 29.7 PG (27-31); MCHC 31.4 g/dL (33-37); MCV 94.5 FL (81-99); MONO# 0.67 X1000 (0.11-0.59); MONO% 9.4 % (1.7-9.3); MPV 9.4 FL (7.4-10.4); PLT 29 X1000 (130-400); RBC 2.93 XMIL (4.2-5.4)
[2017-02-20 07:32] LABS: AGAP 12; ALBUMIN 2.5 g/dL (3.5-5.0); ALKALINE PHOSPHATASE 652 U/L (32-104); BUN 17 mg/dL (8-22); CHLORIDE 106 mmol/L (98-107); COSMO 279; GOT 538 U/L (10-30); GPT 271 U/L (10-36); MAGNESIUM 2.2 mg/dL (1.5-2.7); POTASSIUM 4.1 mmol/L (3.5-5.1); SODIUM 139 mmol/L (136-145); TCO2 21 mmol/L (25-35); TOTAL BILIRUBIN 13.02 mg/dL (0.20-1.00); TOTAL PROTEIN 4.9 g/dL (6.3-8.3)
[2017-02-20 07:34] LABS: BANDS 12 % (0-1); EOS 2 % (1-10); LYMPHS 38 % (21-51); MONO 2 % (1-9); NRBC 11 % (0-0)
[2017-02-20 07:35] LABS: HYPOCHROM 1+; POLYCHROM 1+
[2017-02-20] MEDS ORDERED: EXTENSION SET 32 IN 4522 ONE (08:28)
[2017-02-20] MEDS ORDERED: NS 1,000 ML ONE (08:28)
[2017-02-20] MEDS ORDERED: ANESTHESIA PB SET 88 IN 5742 ONE (08:28)
[2017-02-20 09:04] LABS: CALCIUM 6.7 mg/dL (8.8-10.2)
--- NOTE | 2017-02-20 09:16 | Diag Imaging Result Document ---
PROCEDURE NAME: RETROGRADES 2 OR 3 FILMS - 02/19/2017 RETROGRADE CYSTOGRAM IN OR: FINDINGS: Twelve films submitted from procedure performed by Dr. Michaels. Films show retrograde filling of contrast within each ureter. No obstruction to retrograde flow within either ureter. Normal distention of the left ureter. There is a narrowed segment in the upper third of the right ureter. There is blunting to the right sided calyces. The last film shows the placement of a right sided ureteral stent. IMPRESSION: Narrowed segment in the proximal right ureter with a placement of a right ureteral stent.
--- NOTE | 2017-02-20 10:41 | Diag Imaging Result Document ---
PROCEDURE NAME: US PARACENTESIS - 02/20/2017 ULTRASOUND GUIDED PARACENTESIS: FINDINGS: Prior to the procedure, I discussed the risks and benefits with the patient. Primary risks include, bleeding, infection, bowel injury, and liver injury. Questions were answered. The patient then gave consent. The permit was signed. The largest fluid collection in the mid to lower right abdomen was localized with ultrasound. This area was cleaned and draped in a normal fashion. Lidocaine was used as a local anesthetic. Needle and catheter were advanced into the fluid collection on the first pass without difficulty. The needle was withdrawn. The catheter was hooked to suction. 4.1 L of thin reddish fluid were withdrawn without difficulty. The patient had no complaints during or following the procedure. Fluid was sent to the laboratory for analysis. IMPRESSION: Ultrasound guided paracentesis with no immediate postprocedural complication. [facility]
[2017-02-20] MEDS: FEMARA PO SCH (10:42)
[2017-02-20] MEDS: FOLIC ACID PO SCH ×2 (10:43→20:20)
[2017-02-20] MEDS: PROTONIX IV SCH ×2 (10:43→20:20)
[2017-02-20] MEDS: LACTULOSE PO SCH ×2 (10:44→20:21)
[2017-02-20 11:10] LABS: TOTAL PROT BODY FLUID 0.8 g/dL
[2017-02-20 11:36] LABS: DIFF NEEDED? YES; WBC BF 690 /cumm
[2017-02-20 11:37] LABS: MONOS 68 %; POLYS 32 %
--- NOTE | 2017-02-20 15:39 | CONSULTATION ---
DATE OF CONSULTATION: 02/17/2017 CONSULTATION: Metastatic breast cancer, patient known to Dr. Ferris. CONSULTATION REQUESTED BY: Hospitalist Service. HISTORY OF PRESENT ILLNESS: Ms. Alma Zaldivar is a 52-year-old female, who is known to Dr. Ferris as she is currently being treated for metastatic breast cancer. The patient has known bone involvement in regards to her breast cancer. She recently had a CT scan done at [facility] which showed her to have a diffusely abnormal liver and spleen that is either potentially infectious with metastatic felt to be less likely. Currently the patient is status post liver biopsy yesterday on 02/16/2017. The patient went home after her liver biopsy and started experiencing increased nausea as well as increased pain. She reported back to [facility] [place] office and was told to report to the emergency department for further evaluation. The patient was then admitted due to her intractable nausea, vomiting, as well as increased pain. At this time, the patient reports that her symptoms are somewhat improved. She has some family at bedside. The patient has been receiving Femara and Avastin as an outpatient with her last dose of Avastin being 02/07/2017. The patient is hoping to get a paracentesis at some point in the near future. PAST MEDICAL HISTORY: 1. Right breast cancer, now with bony metastases. 2. Anemia secondary to chronic disease. 3. Depression, anxiety. 4. 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 5. Recent diagnosis of liver disease. PAST SURGICAL HISTORY: 1. Recent liver biopsy done yesterday. 2. Status post right mastectomy. 3. sections x3. 4. Hysterectomy. 5. Bone marrow biopsy. 6. Port placement. SOCIAL HISTORY: Patient denies any tobacco, alcohol or illicit drug use. She does have 4 adult children who are supportive. FAMILY HISTORY: Positive for her brother who has diabetes and her father who has both heart disease as well as prostate cancer with bone metastasis. REVIEW OF SYSTEMS: As per the HPI. All else is either negative or noncontributory. PHYSICAL EXAMINATION: Vital Signs: Temperature 98.3 degrees, heart rate 118 respirations 19, blood pressure 118/83, O2 saturation 95% on room air. General: This is a female lying in the hospital bed. She has 2 family members by the bedside. She is in no acute distress currently. HEAD: Head appears to be normocephalic, atraumatic. Eyes: Pupils equal, round, reactive. Sclerae are icteric. Ears, nose, throat, neck and mouth: Oral mucosa appears to be normal. Trachea is midline. Gross auditory acuity is intact. Cardiovascular: S1-S2 heard. She has tachycardia, but regular rhythm. Respiratory: Clear to auscultation bilaterally. Normal respiratory effort. Gastrointestinal: Abdomen is distended with diffuse tenderness. Evidence of ascites. Positive bowel sounds. Musculoskeletal: The patient has no bony abnormalities. Extremities: The patient has edema bilateral lower extremities, 2+ pitting. Skin: Patient has evidence of jaundice. Neurologic: Patient is alert and oriented. No focal motor deficits. LABORATORY STUDIES: The patient's white blood cell count was 5.73, hemoglobin 7, hematocrit 23.2, platelets 40,000. Sodium 135, potassium 4.7, chloride 100, CO2 19, BUN 18, creatinine 0.7, glucose 105, ferritin is 7127. Total bilirubin is 8.34. AST ALT are 765 and 280 respectively. Alkaline phosphatase is 800. Folate is 8.5. INR is 1.6. IMAGING: CT of abdomen and pelvis done at [facility] shows patient has cirrhosis with nodular liver, splenomegaly and ascites. There is diffuse sclerotic bony metastasis and right hydronephrosis. ASSESSMENT AND PLAN: 1. Metastatic breast cancer. Patient has infiltrating ductal carcinoma, ER DC positive, Her2 negative. She is currently receiving Femara and Avastin. Her last Avastin dose was 02/07/2017. We will hold treatment while she is in the hospital. 2. Cirrhosis, status post liver biopsy 02/16/2017. We will need to follow up on the pathology from that biopsy. She will continue to be also followed by Gastroenterology. Gastroenterology evaluation in the hospital is currently pending. 3. Anemia. The patient has had anemia for some time and has received multiple blood transfusions as an outpatient. 2 units of packed red blood cells ordered for the patient to get today. She also gets Aranesp as an outpatient. Hemoglobin tends to range from 8-10 as an outpatient. Continue to monitor closely. Check haptoglobin, LDH and reticulocyte count. 4. Thrombocytopenia. Patient is at her baseline which ranges from 30s to 50s. She denies any abnormal bleeding at this time. Check fibrinogen and D-dimer in addition to the PT/INR and PTT that have already been completed. Continue to monitor and transfuse as needed. 5. Transaminitis. This is secondary to #2. Continue to monitor. Gastroenterology workup as per above. Liver biopsy completed with past currently pending as per above. 6. Pain. Currently well controlled with Demerol. Continue. 7. Small portal and splenic vein thrombosis seen on CT scan done 02/13/2017 at [facility]. Patient's INR is a little bit elevated. We will continue to hold anticoagulation at this time. 8. Increased INR. Secondary to #2. Continue to monitor. 9. Ascites. Patient will need a paracentesis prior to discharge. Plan will be to set this up likely after Gastroenterology evaluates the patient. We want to thank you for consulting us on Alma kay while she is at [facility]. We will continue to follow along and adjust treatment plan per the patient's hospital course. Dictated by TREE [employer]itario for Savanna Dill MD cc: Savanna Dill MD
[2017-02-20] MEDS ORDERED: SODIUM PHOSPHATE IV ONE (16:30)
[2017-02-20] MEDS ORDERED: NS IV ONE (16:30)
--- NOTE | 2017-02-20 16:33 | PROGRESS NOTE ---
DATE: 02/20/2017 Today Ms. Zaldivar referred to be doing a little better. When I saw her she was actually immediate post paracentesis and she was feeling slightly nauseated. OBJECTIVE: Vital signs: Blood pressure is 140/89, respiration is 18, temperature is 97.8 degrees and pulse is 90. General: Ms. Zaldivar is a 52-year-old female. She was in bed. Not in any distress. HEENT: Mucosa is pink, moist. About 2+ icteric. Chest: Good air entry bilaterally. Few bibasilar crepitations. Cardiovascular: Regular rate and rhythm. Abdomen: Soft, distended. Mildly tender and there is some shifting dullness. DIE STAMPING PRESS OPERATOR: Patient is alert and oriented. There is no focal neurological deficit. LABORATORY DATA: WBC 7.09, hemoglobin is 8.7, platelet count is down to 29, 000. There are 12% bands on the peripheral smear. Chemistry is reviewed. Calcium is 6.7, phosphorus is 1.4. Total bilirubin is 13.02. AST and ALT are all elevated. The ascitic fluid has a total WBC of 690, segment is 32%, monocyte is 68%, albumin 0.5%, total protein is 0.8%. ASSESSMENT: 1. Transaminitis with obstructive pattern of jaundice. 2. Cirrhosis. Etiology is unclear. 3. Ascites status post recently done paracentesis, 4.1 L of thin reddish ascitic fluid was obtained by IR. So far the analysis of the fluid is consistent with SBP, SAAG, more than 1.1 which is consistent with portal hypertension. 4. Right proximal hydronephrosis status post cystoscopy, bilateral retrograde pyelograms, placement of 6-Bengali right ureteral stent was done by Dr. Michaels yesterday. 5. Thrombocytopenia. Platelet count continues to go down. I think this is a combination of cirrhosis and possible bone marrow disease. She is currently not actively bleeding. We will therefore keep observing this. 6. Breast cancer with metastasis to bone. Patient is receptor positive. Currently on Femara and Avastin. From research Femara can also cause transaminitis and some liver abnormalities. Will be pending on the biopsy report on the liver to know what is causing the cirrhosis. So in general, Ms. Zaldivar seems to be stable. We are going to start her cefoxitin for SBP and also hopefully for any urinary tract infection because of the stent placement. Will still be pending on the cytology from the ascitic fluid and also the pathology from the liver biopsy. The patient also does have hypocalcemia and hypophosphatemia. We would replace this accordingly. cc: Kwame Gooden MD MTDD
[2017-02-20] MEDS: MEFOXIN 1 GM/D5W 1 GM/50 ML IVPB IV SCH ×2 (16:58→23:11)
[2017-02-20] MEDS ORDERED: CALCIUM GLUCONATE 2 GM in NS 100 ML IV ONE (17:30)
--- NOTE | 2017-02-20 19:47 | PROGRESS NOTE ---
DATE: 02/20/2017 SUBJECTIVE: Ms. Zaldivar reports feeling better after the stent placement. She reports right-sided flank pain has significantly improved. Her urine continues to have red tinge. She denies other complaints from standpoint. OBJECTIVE: Vital Signs: Temperature 97.8, pulse 90, blood pressure 140/89. Her urine output was reported over a liter. General: No acute distress. Abdomen: Tender, nondistended. : Fleming catheter in place draining pink to brownish urine. PERTINENT LABORATORY: Her white cell count 7000, platelet count is 29,000. Creatinine is 0.4. ASSESSMENT: A 52-year-old female with metastatic breast cancer who had a right ureteral obstruction due to extrinsic compression likely by the cancer. She is status post right ureteral stent placement. I have discussed with the patient and her family present at bedside that we will need to replace the stent in approximately 4 months depending on her prognosis. They voiced understanding. Their questions were answered. PLAN: 1. Fleming catheter per primary team. 2. Please call with questions. cc: Shashank Michaels MD
[2017-02-20] MEDS: EFFEXOR PO SCH (20:20)
[2017-02-20] MEDS: SODIUM CHLORIDE 0.9% INJ SCH (20:20)
[2017-02-20] MEDS: PHENERGAN IV PRN (23:49)
[2017-02-21] MEDS: NS 1,000 ML IV SCH ×2 (05:31→05:32)
[2017-02-21 07:57] LABS: BASO% 3.1 % (0.0-0.8); EOS# 0.19 X1000 (0.0-0.7); EOS% 2.7 % (0.0-10.0); HEMATOCRIT 28.9 % (37.0-47.0); HEMOGLOBIN 9.1 g/dL (12.0-16.0); IMM GRAN# 0.31 X1000 (0.0-0.04); IMM GRAN% 4.4 % (0.0-0.5); LYMPH# 3.33 X1000 (1.2-3.4); LYMPH% 46.9 % (20.5-51.1); MANUAL DIFF NEEDED? YES; MCH 29.7 PG (27-31); MCHC 31.5 g/dL (33-37); MCV 94.4 FL (81-99); MONO# 0.81 X1000 (0.11-0.59); MONO% 11.4 % (1.7-9.3); MPV 10.7 FL (7.4-10.4); NEUT% 31.5 % (42.2-75.2); PLT 29 X1000 (130-400); RBC 3.06 XMIL (4.2-5.4)
[2017-02-21 08:02] LABS: AGAP 12; ALBUMIN 2.2 g/dL (3.5-5.0); ALKALINE PHOSPHATASE 649 U/L (32-104); BUN 11 mg/dL (8-22); CHLORIDE 103 mmol/L (98-107); COSMO 275; GOT 501 U/L (10-30); GPT 239 U/L (10-36); POTASSIUM 3.5 mmol/L (3.5-5.1); SODIUM 138 mmol/L (136-145); TCO2 23 mmol/L (25-35); TOTAL BILIRUBIN 14.49 mg/dL (0.20-1.00); TOTAL PROTEIN 4.6 g/dL (6.3-8.3)
[2017-02-21 08:12] LABS: CALCIUM 6.8 mg/dL (8.8-10.2)
[2017-02-21 08:27] LABS: BANDS 6 % (0-1); EOS 6 % (1-10); LYMPHS 42 % (21-51); MONO 2 % (1-9)
[2017-02-21] MEDS: FOLIC ACID PO SCH ×2 (09:34→20:12)
[2017-02-21] MEDS: MEFOXIN 1 GM/D5W 1 GM/50 ML IVPB IV SCH ×2 (09:34→17:54)
[2017-02-21] MEDS: FEMARA PO SCH (09:34)
[2017-02-21] MEDS: LACTULOSE PO SCH ×2 (09:35→20:13)
[2017-02-21] MEDS: PROTONIX IV SCH ×2 (09:35→20:13)
[2017-02-21] MEDS: SODIUM CHLORIDE 0.9% INJ SCH ×2 (09:35→20:13)
[2017-02-21] MEDS: ZOFRAN IV PRN (10:40)
[2017-02-21] MEDS: DEMEROL IV PRN (13:43)
[2017-02-21] MEDS: PHENERGAN IV PRN (13:44)
--- NOTE | 2017-02-21 15:12 | PROGRESS NOTE ---
DATE: 02/21/2017 SUBJECTIVE: I talked with the daughter. She states patient has had some pain today. She has just received pain medication and she is asleep with no noted distress. OBJECTIVE: Vital Signs: Temperature 98.3 degrees, pulse 138, respirations 10, and blood pressure was 121/96. LABORATORY: Hematology: White count 7.10, hemoglobin 9.1, hematocrit 28.9, MCV 94.4, platelets 29,000. Sodium 138, potassium 3.5, chloride 103, CO2 23, BUN 11, creatinine 0.4. Glucose 89. Direct bilirubin 7.80, total bilirubin 14.49. AST 501, ALT 239, alkaline phosphatase 649. ASSESSMENT AND PLAN: 1. Metastatic breast cancer to the bone and bone marrow now with metastasis to the liver. Awaiting cytology. 2. Ascites status post paracentesis. Ascitic fluid analysis reviewed with Dr. Dey. He states there are no signs of bacterial peritonitis. Waiting cytology. Liver biopsy did show metastatic breast cancer. No evidence of cirrhosis. 3. Elevated LFTs from intrahepatic cholestasis and metastatic involvement of the liver. [facility] is following and plans to start chemotherapy as an inpatient if possible. GI will be available as needed. Dictated by JONNY Calderon for Siva Dey MD cc: JONNY Steen MD [facility]
--- NOTE | 2017-02-21 16:51 | PROGRESS NOTE ---
DATE: 02/21/2017 SUBJECTIVE: Today, Ms. Zaldivar refers to be doing fine. She still continues to have a little bit of abdominal discomfort. OBJECTIVE: Vital Signs: Blood pressure is 121/94, pulse of 138, respiration is 10, and temperature is 98.3. General: Ms. Zaldivar is a 52-year-old female. She is in bed, mild distress. HEENT: Mucosa is pink, moist. 3+ icteric. Chest: Good air entry bilateral. A few bibasilar crepitations. Cardiovascular: Regular rate and rhythm. Abdomen is soft, distended. It is mildly tender. There is shifting dullness. FENCE RIDER: The patient is alert, oriented. There is no focal neurological deficit. LABORATORY DATA: WBC is 7.10. Hemoglobin is 9.1, platelet count of 29,000. There is 6% of bands on the peripheral smear. Chemistry is reviewed. Bilirubin is 14.49. It keeps going up. TSH is 500. Alkaline phosphatase is 646. Albumin is 2.2. ASSESSMENT: 1. Transaminitis with obstructive pattern of jaundice. Adjunct Faculty Instructor is on board. Bilirubin is actually slightly getting worse; however, all the other liver enzymes are improving. 2. Cirrhosis. Etiology is unclear. We are pending serologies. 3. Ascites. Status post paracentesis with 4.1, thin, reddish ascitic fluid was removed. So far, the ascitic fluid has absolute neutrophil count of 220. It is slightly low of the 250 bench beatrice; however, the patient has some abdominal tenderness. I will continue with the current antibiotics until the patient is more stable. 4. Right proximal hydronephrosis, status post cystoscopy. Bilateral retrograde pyelogram and placement of stent in the right ureter. 5. Thrombocytopenia is stable. I think this is due to cirrhosis and possible bone marrow disease. 6. Breast cancer with metastasis to bone. I think the patient is getting a little bit puffiness probably from the IV fluids. We will therefore stop this. We will repeat her labs for tomorrow morning, and we will be pending the pathology report on the biopsy of the liver. cc: Kwame Gooden MD MTDD
[2017-02-21] MEDS: EFFEXOR PO SCH (20:12)
[2017-02-22] MEDS: MEFOXIN 1 GM/D5W 1 GM/50 ML IVPB IV SCH ×3 (00:04→17:44)
[2017-02-22] MEDS: DEMEROL IV PRN ×2 (00:08→13:50)
[2017-02-22 07:22] LABS: BASO% 2.4 % (0.0-0.8); EOS# 0.17 X1000 (0.0-0.7); EOS% 2.3 % (0.0-10.0); HEMATOCRIT 29.2 % (37.0-47.0); HEMOGLOBIN 9.1 g/dL (12.0-16.0); IMM GRAN# 0.17 X1000 (0.0-0.04); IMM GRAN% 2.3 % (0.0-0.5); LYMPH# 3.61 X1000 (1.2-3.4); LYMPH% 48.6 % (20.5-51.1); MANUAL DIFF NEEDED? YES; MCH 29.4 PG (27-31); MCHC 31.2 g/dL (33-37); MCV 94.5 FL (81-99); MONO# 0.73 X1000 (0.11-0.59); MONO% 9.8 % (1.7-9.3); MPV 10.5 FL (7.4-10.4); NEUT% 34.6 % (42.2-75.2); PLT 30 X1000 (130-400); RBC 3.09 XMIL (4.2-5.4)
[2017-02-22 07:35] LABS: AGAP 10; ALBUMIN 2.1 g/dL (3.5-5.0); ALKALINE PHOSPHATASE 646 U/L (32-104); BUN 12 mg/dL (8-22); CHLORIDE 103 mmol/L (98-107); COSMO 273; GOT 458 U/L (10-30); GPT 226 U/L (10-36); POTASSIUM 3.6 mmol/L (3.5-5.1); SODIUM 137 mmol/L (136-145); TCO2 24 mmol/L (25-35); TOTAL PROTEIN 4.3 g/dL (6.3-8.3)
[2017-02-22 08:15] LABS: BANDS 6 % (0-1); EOS 2 % (1-10); LYMPHS 40 % (21-51); NRBC 8 % (0-0)
[2017-02-22 09:03] LABS: INR 1.16; PROTIME 12.3 Seconds (9.2-11.7)
[2017-02-22] MEDS: FEMARA PO SCH (09:30)
[2017-02-22] MEDS: FOLIC ACID PO SCH ×2 (09:30→20:54)
[2017-02-22] MEDS: PROTONIX IV SCH ×2 (09:30→20:54)
[2017-02-22] MEDS: LACTULOSE PO SCH ×2 (09:31→20:53)
[2017-02-22] MEDS: SODIUM CHLORIDE 0.9% INJ SCH ×2 (09:31→20:54)
[2017-02-22] MEDS ORDERED: EMEND 150 MG in NS 145 ML IV ONE (11:30)
[2017-02-22] MEDS ORDERED: ZOFRAN 16 MG in NS 50 ML IV ONE (12:00)
[2017-02-22] MEDS ORDERED: DECADRON IV ONE (12:15)
[2017-02-22] MEDS ORDERED: AVASTIN IV ONE (12:30)
[2017-02-22] MEDS ORDERED: NS IV ONE ×4 (12:30→16:11)
[2017-02-22] MEDS ORDERED: BENADRYL IV ONE ×2 (12:41→12:44)
[2017-02-22] MEDS ORDERED: TAXOTERE IV ONE (13:00)
[2017-02-22] MEDS ORDERED: PARAPLATIN IV ONE (14:00)
[2017-02-22] MEDS ORDERED: CALCIUM GLUCONATE IV ONE (16:11)
--- NOTE | 2017-02-22 16:14 | PROGRESS NOTE ---
DATE: 02/22/2017 Today Ms. Zaldivar referred to be doing relatively fine. She does not have any major complaints. OBJECTIVE: Vital signs: Blood pressure is 132/87, pulse of 90, respirations 20, temperature 98.1 degrees. Patient is saturating ambient air. General: Ms. Zaldivar is a 52-year-old female. She looks slightly wasted. She is in bed, no distress. HEENT: Mucosa is pink and moist. 3+ of icterus but no cyanosis. Chest: Good air entry bilaterally. Few bibasilar crepitations. Cardiovascular: Regular rate and rhythm. No murmurs, no rubs. No gallops. Abdomen: Soft, is distended. It is mildly tender all over. There is shifting dullness. There is no rebound or any guarding. IN SERVICE EDUCATION TEACHER: Patient is alert and oriented x4. There is no focal neurological deficit. LABORATORY DATA: WBC is 7.43, hemoglobin is 9.1, platelet count of 30,000. There is only 6% of bands on the peripheral smear. Chemistry is reviewed. Completely normal except for calcium 7.0. Total bilirubin is 16.30, AST 458. It is gradually getting better. ALT is 226 and alkaline phosphatase is 647. The pathology on the liver biopsy says metastatic adenocarcinoma consistent with primary breast. ASSESSMENT: 1. Transaminitis likely due to metastatic cancer. So far, the pathology report is consistent with metastatic adenocarcinoma of the breast. 2. Cirrhosis of the liver. The etiology is unclear. I am not sure if it is due to metastatic disease or the assumption that so many serologies that are still pending. 3. Ascites. Status post paracentesis with 4.1 L removed. So far the cytology was negative for any malignancy. 4. Suspected SBP. The patient has neutrophil count of 220 in the peritoneal fluid however she is slightly tender and she did have about 12% of bands on peripheral smear at 1 point during the hospital stay, so I think there was genuine infection process going on. The patient will continue with the current antibiotic for at least 5 days. 5. Right proximal hydronephrosis. This has been taken care of by Dr. Michaels. A stent has been placed. 6. Thrombocytopenia. This is stable. I think it is due to cirrhosis and also bone marrow disease. 7. Metastatic breast cancer to bone and to the liver. I understand patient is going to be started on chemotherapy today by the Hematology/Oncology team. cc: Kwame Gooden MD
--- NOTE | 2017-02-22 16:19 | PROGRESS NOTE ---
DATE: 02/22/2017 SUBJECTIVE: The patient is lying in the bed awake. She is in no acute distress. She denies pain today. She states she has not had to take any pain medication today. OBJECTIVE: Vital Signs: Temperature 98 degrees, pulse 88, respirations 18, blood pressure 126/89. Generally, the patient is awake and alert in no acute distress. HEENT: Sclerae jaundiced. Respiratory: Lungs sound essentially clear. Cardiovascular: Regular rate and rhythm. Abdomen distended, ascites, otherwise soft and mildly tender with palpation. LABORATORY RESULTS: Hematology: White count 7.43, hemoglobin 9.1, hematocrit 29.2, MCV 94.5, platelets 30,000. Chemistry: Sodium 137, potassium 3.6, chloride 103, CO2 of 24. BUN 12, creatinine 0.4 glucose 87, calcium 7.0, total bilirubin 16.30, AST 458. ALT 226, alkaline phosphatase 646. ASSESSMENT AND PLAN: 1. Metastatic breast cancer with metastasis to bone, bone marrow and metastasis to the liver. 2. Ascites, status post paracentesis, showing metastatic disease. 3. Elevated LFTs. She was currently started on chemotherapy by Dr. Ferris. They will continue to follow. Recycling Or Rubbish Collector will be available as needed. Dictated by JONNY Calderon for Siva Dey MD cc: JONNY Steen MD
[2017-02-22] MEDS: EFFEXOR PO SCH (20:54)
[2017-02-23] MEDS: MEFOXIN 1 GM/D5W 1 GM/50 ML IVPB IV SCH ×2 (00:55→08:45)
[2017-02-23 07:06] LABS: BASO% 2.3 % (0.0-0.8); EOS# 0.05 X1000 (0.0-0.7); EOS% 0.7 % (0.0-10.0); HEMATOCRIT 28.2 % (37.0-47.0); HEMOGLOBIN 8.8 g/dL (12.0-16.0); IMM GRAN# 0.14 X1000 (0.0-0.04); IMM GRAN% 1.9 % (0.0-0.5); LYMPH# 2.93 X1000 (1.2-3.4); LYMPH% 40.5 % (20.5-51.1); MANUAL DIFF NEEDED? YES; MCH 29.6 PG (27-31); MCHC 31.2 g/dL (33-37); MCV 94.9 FL (81-99); MONO# 0.52 X1000 (0.11-0.59); MONO% 7.2 % (1.7-9.3); NEUT% 47.4 % (42.2-75.2); PLT 32 X1000 (130-400); RBC 2.97 XMIL (4.2-5.4)
[2017-02-23 07:14] LABS: AGAP 10; ALKALINE PHOSPHATASE 656 U/L (32-104); BUN 14 mg/dL (8-22); CALCIUM 7.4 mg/dL (8.8-10.2); CHLORIDE 102 mmol/L (98-107); COSMO 273; GOT 454 U/L (10-30); GPT 229 U/L (10-36); POTASSIUM 4.3 mmol/L (3.5-5.1); SODIUM 135 mmol/L (136-145); TCO2 23 mmol/L (25-35); TOTAL BILIRUBIN 17.05 mg/dL (0.20-1.00); TOTAL PROTEIN 4.4 g/dL (6.3-8.3)
[2017-02-23 07:19] LABS: BANDS 4 % (0-1); LYMPHS 14 % (21-51); NRBC 5 % (0-0)
[2017-02-23] MEDS: LACTULOSE PO SCH (08:45)
[2017-02-23] MEDS: FOLIC ACID PO SCH (08:45)
[2017-02-23] MEDS: FEMARA PO SCH (08:45)
[2017-02-23] MEDS: PROTONIX IV SCH (08:45)
[2017-02-23 09:08] LABS: HEPATITIS PROFILE ACUTE SEE COMMENTS
[2017-02-23 10:11] VITALS: BP 129/87
[2017-02-23] MEDS ORDERED: HEPARIN ONE (15:41)
--- NOTE | 2017-02-23 22:28 | DISCHARGE SUMMARY ---
ADMISSION DATE: 02/16/2017 DISCHARGE DATE: 02/23/2017 CONSULTATIONS: 1. Siva Dey MD with Gastroenterology. 2. Savanna Dill MD with Hematology/Oncology. PERTINENT PROCEDURES: 1. Abdomen and pelvis CT showed interval development of cirrhosis with nodular liver, splenomegaly and ascites. There is now diffuse sclerotic bony metastasis, development of proximal right hydronephrosis, no calcified stone. 2. Abdominal ultrasound showed ascites about the liver, splenomegaly, moderate right-sided hydronephrosis similar to CT. 3. Retrograde pyelogram showed narrow segment in the proximal right ureter with placement of a right ureteral stent. 4. Cystoscopy with bilateral retrograde pyelogram and placement of a right ureteral stent performed by Dr. Michaels. 5. Paracentesis with 4.1 L of thin reddish fluid withdrawn without difficulty. DISCHARGE DIAGNOSES: 1. Transaminitis secondary to metastatic cancer. Pathology report is consistent with metastatic adenocarcinoma of the breast followed by Dr. Savanna Dill. 2. Cirrhosis of the liver. Etiology unclear. Unsure if due to metastatic disease. There are many serologies that are still pending. 3. Ascites status post paracentesis where 4.1 L of fluid were removed. Cytology was negative for any malignancy. 4. Suspected SBP neutrophil count is 220 in the peritoneal fluid, however, she is slightly tender. She did have about 12% bands in the peripheral smear at one point during the hospital stay. Possible infectious process was going on. The patient will continue with antibiotics for the next few days. 5. Right proximal hydronephrosis. Patient did undergo a stent with Dr. Michaels. 6. Thrombocytopenia stable secondary to cirrhosis as well as bone marrow disease. 7. Metastatic breast cancer to bone and liver. Patient was started on chemotherapy on 02/22/2017. HOSPITAL COURSE: Ms. Zaldivar is a 52-year-old, female with a history of right breast cancer that was diagnosed 5 years ago along with metastasis to the bone. She was started on chemotherapy at that time and then again in May 2015 she was diagnosed with spread into the bone marrow after bone marrow biopsy. She resumed chemo for that and finished it 12/27/2016. On the day of her admission she went in for liver biopsy. She had gone home, tried to eat a sandwich and it caused her a great deal of nausea. She had also been having abdominal pain with this. She started vomiting but denied any blood in the emesis, stool or urine. Upon workup in the ED she was found have an elevated bilirubin, AST and ALT. Normal amylase and lipase with normal kidney function. Abdomen and pelvic CT showed right hydronephrosis, cirrhosis, nodular liver, ascites, splenomegaly and diffuse sclerotic bony metastasis. The patient was admitted for her significant nausea and vomiting as well as elevated liver enzymes with a consultation for Hematology as well as GI. Patient was admitted and started on antiemetics with Zofran and Phenergan. Hematology was consulted to see the patient. I believe she originally followed with Dr. Ferris. Dr. Dill saw her while she was here in the hospital. She was started on chemotherapy on 01/2017. The patient was also found to have right-sided hydronephrosis. She underwent right ureteral stent placement performed by Dr. Michaels on 02/19/2017. She also underwent a paracentesis on 02/20/2017 where they were able to remove. 4.1 L of reddish fluid. She was also followed along by GI. Superannuation Clerk was consulted for home health, as well as DME. The patient's cytology report so far is consistent with metastatic adenocarcinoma of the breast. Again she was started on chemotherapy by Oncology on 02/22/2017. She is being discharged home today with home health and DME. VITAL SIGNS AT TIME OF DISCHARGE: Temperature is 98.2 degrees, heart rate 79, respirations 18, blood pressure 129/87, O2 is 95% on 2 L nasal cannula. DISCHARGE DIET: GI soft with Boost 3 times a day with each meal. DISCHARGE MEDICATIONS: 1. Zyrtec 10 mg p.o. daily. 2. Desire Allergy 60 mg p.o. daily. 3. Folic acid 1 mg p.o. b.i.d. 4. Femara 2.5 mg p.o. daily. 5. Prilosec 20 mg p.o. at bedtime. 6. Zofran 8 mg p.o. q.8 hours p.r.n. 7. Nucynta 50 mg p.o. q.6 hours p.r.n. 8. Temazepam 15 mg p.o. p.r.n. 9. Effexor 75 mg p.o. at bedtime. FOLLOWUP: 1. Patient is being discharged home with home health as well as DME for hospital bed, shower chair and bedside commode. The patient will continue to follow up with Dr. Ferris as discussed for continued chemo as well as following up for serology studies. 2. Patient can return to the ED for any worsening of symptoms. DISCHARGE TIME: 30 minutes. Dictated by JONNY Mendoza for Kwame Gooden MD cc: Kwame Gooden MD MTDD
--- NOTE | 2017-03-04 11:46 | PROGRESS NOTE ---
DATE: 02/18/2017 SUBJECTIVE: Today she is feeling better. No significant nausea and vomiting. OBJECTIVE: Vital Signs: Blood pressure 144/90, pulse of 100, respirations 20, temp 98.2 degrees, O2 saturation is 98%. General: This is a 52-year-old lady, lying in bed. Does not seem to be in acute distress. HEENT: There is marked scleral icterus present. Conjunctival pallor present. Neck: Supple. Heart: Normal first second heart sounds. Lungs: Bilateral basal rales. Abdomen: Distended and ascites present. dullness present. Bowel sounds are present and normal. Central nervous system: No signs of hepatic encephalopathy or asterixis. She is an alert and oriented. LABORATORY DATA: White count 6.33, hemoglobin 9.2, platelet count is low at 37,000. Her albumin is low at 2.3 and calcium at 7.0. IMPRESSIONS: 1. Intractable nausea and vomiting which is better. 2. worsening liver condition. Possibly related to metastatic disease but is there may be some obstructive component as well. We will discuss this with Dr. Dey. 3. Cirrhosis. Possibly secondary to tumor overload. 4. Ascites. She probably needs paracentesis. 5. History of breast cancer with bone metastasis. 6. Proximal hydronephrosis on the right side. PLAN: Will continue the current management. She probably needs a therapeutic paracentesis. She will be seen by the oncology as she just finished chemotherapy, as well as we need to assess the progression of her metastatic disease. cc: Nidhi Dhillon MD
== END 2017-02-23 15:57 | disposition home health service (06) ==
LOC: ED 11:33 → 3N 20:16
PROVIDERS: ATTEND Internal Medicine

== ENCOUNTER 2017-03-08 09:18 | Inpatient (IN) ==
[2017-03-08] MEDS ORDERED: NUCYNTA PO PRN (10:53)
[2017-03-08] MEDS ORDERED: ZOFRAN IV PRN (10:53)
[2017-03-08] MEDS ORDERED: ZOFRAN PO PRN (10:53)
[2017-03-08] MEDS ORDERED: DURAGESIC 12 MICROGM/HR PATCH TD SCH (11:00)
[2017-03-08] MEDS ORDERED: VITAMIN K 5 MG in NS 50 ML IV ONE (11:30)
[2017-03-08] MEDS: DILAUDID IV PRN ×2 (12:23→20:33)
[2017-03-08] MEDS ORDERED: OFIRMEV 1000 MG/ISOTONIC SOLN 1,000 MG/100 ML BOTTLE IV PRN ×2 (13:35→15:37)
[2017-03-08] MEDS ORDERED: TYLENOL PO ONE (13:35)
[2017-03-08] MEDS ORDERED: TYLENOL PO PRN ×2 (13:44→15:37)
[2017-03-08] MEDS ORDERED: GRANIX SUBQ SCH (13:45)
[2017-03-08] MEDS ORDERED: LEVAQUIN 500 MG/D5W 500 MG/100 ML IVPB IV SCH (13:45)
[2017-03-08] MEDS: CLINIMIX E 4.25%-5% SOLUTION 1,000 ML IV SCH (14:21)
[2017-03-08] MEDS ORDERED: [UNRECOGNIZED DRUG - OTHER] IV PRN ×2 (14:39→15:51)
[2017-03-08] MEDS ORDERED: NEUPOGEN SUBQ ONE (15:37)
[2017-03-08] MEDS: GRANIX SUBQ SCH (16:52)
[2017-03-08] MEDS: NS 500 ML IV SCH (18:14)
[2017-03-09] MEDS: DILAUDID IV PRN ×6 (02:23→22:05)
[2017-03-09] MEDS: CLINIMIX E 4.25%-5% SOLUTION 1,000 ML IV SCH ×2 (03:53→22:10)
[2017-03-09] MEDS ORDERED: TYLENOL PR ONE (06:12)
[2017-03-09] MEDS ORDERED: PHENERGAN IV PRN (06:12)
[2017-03-09] MEDS ORDERED: SODIUM CHLORIDE 0.9% INJ PRN (06:12)
[2017-03-09] MEDS ORDERED: NS 500 ML IV ONE (06:12)
[2017-03-09] MEDS: GRANIX SUBQ SCH (09:36)
[2017-03-09] MEDS ORDERED: BLISTEX MEDICATED BERRY LIP BALM TOP ONE (09:59)
[2017-03-09] MEDS: NS 500 ML IV SCH (12:18)
[2017-03-09] MEDS: LEVAQUIN 500 MG/D5W 500 MG/100 ML IVPB IV SCH (13:36)
[2017-03-09] MEDS ORDERED: ATIVAN IV PRN (15:01)
[2017-03-09] MEDS ORDERED: ATROPINE 1% OPHTH SOLN SL PRN (15:01)
[2017-03-09] MEDS ORDERED: HALDOL IV PRN (15:01)
[2017-03-09] MEDS: BENADRYL IV PRN (22:34)
[2017-03-10] MEDS: DILAUDID IV PRN ×5 (02:05→21:06)
[2017-03-10] MEDS: GRANIX SUBQ SCH (09:58)
[2017-03-10] MEDS: BENADRYL IV PRN (11:50)
[2017-03-10] MEDS: PYRIDIUM PO SCH ×3 (13:09→17:39)
[2017-03-10] MEDS: NS 500 ML IV SCH (13:20)
[2017-03-10] MEDS: CLINIMIX E 4.25%-5% SOLUTION 1,000 ML IV SCH (13:20)
[2017-03-10] MEDS: LEVAQUIN 500 MG/D5W 500 MG/100 ML IVPB IV SCH (14:53)
[2017-03-11] MEDS: DILAUDID IV PRN ×2 (00:12→04:12)
[2017-03-11 04:49] VITALS: BP 142/97
== END 2017-03-11 06:59 | disposition expired ==
LOC: DIRADM 09:18 → 3S 10:33 → 3N 03-10 21:53
PROVIDERS: ADMIT Internal Medicine Hematology & Oncology; ATTEND Internal Medicine Hematology & Oncology